=== PATIENT | male | born 1995 | race Hispanic/Latino ===

== ENCOUNTER 2024-10-18 17:28 | Emergency (ER) | payer SELFPAY ==
[~2024-10-18] VITALS: Ht 170.2 cm; Wt 90.7 kg
[2024-10-18] MEDS: CIPROFLOXACIN HCL 0.2%/HYDROCORT 1% 10 ML OTIC SUSP OTIC ONE (18:25)
[2024-10-18] MEDS: ketOROlac 15MG/ML VIAL (15MG/ML) IV ONE (18:25)
[2024-10-18] MEDS: cefTRIAXone 1G VIAL IVPB ONE (18:25)
[2024-10-18] MEDS: dexaMETHasone SOD PHOSPHATE 4 MG/ML 1ML VIAL IV ONE (18:25)
[2024-10-18] MEDS ORDERED: AMOX1TAB16 PO (18:30)
[2024-10-18] MEDS ORDERED: KETO10TA2 PO (18:30)
[2024-10-18] MEDS ORDERED: CIPOTIC OTIC (18:30)
--- NOTE | 2024-10-18 18:38 | ERN ---
General Chief Complaint: Earache Stated Complaint: RT EAR PAIN Time Seen by MD: 17:31 Time Seen by Midlevel: 17:31 Source: patient History of Present Illness Initial Comments Patient is a 29-year-old male with no significant past medical history presenting to the emergency department with right ear pain that started yesterday. He went to [place] yesterday and obtained antibiotic eardrops that he started yesterday with little to no relief. Today he reports increased pain to the right side of his ear. Denies any other symptoms. Allergies: Coded Allergies: No Known Allergies (Unverified Allergy, Unknown, 10/18/24) Home Meds Active Scripts Ciprofloxacin HCl/Hc (Cipro Hc Otic Susp) 0.2 %-1 % Otsus, 3 DROP OTIC BID for 7 Days, #10 ML 0 Refills Prov:CAPRI WELLER 10/18/24 Amoxicillin/Potassium Clav (Amox Tr-K Clv 875-125 mg Tab) 875 Mg-125 Mg Tablet, 1 EACH PO BID for 7 Days, #14 TAB 0 Refills Prov:CAPRI WELLER 10/18/24 Ketorolac Tromethamine (Ketorolac Tromethamine) 10 Mg Tablet, 1 TAB PO TID for p ain for 5 Days, #15 TAB 0 Refills Prov:CAPRI WELLER 10/18/24 Past Medical History Past Medical History: No Pertinent History Past Surgical History: None ROS Dictation CONSTITUTIONAL: Negative except for HPI HEAD/FACE: Negative except for HPI EENT: Negative except for HPI RESPIRATORY: Negative except for HPI GASTROINTESTINAL/ABDOMINAL: Negative except for HPI GENITOURINARY: Negative except for HPI MUSCULOSKELETAL: Negative except for HPI INTEGUMENTARY: Negative except for HPI NEUROLOGICAL/PSYCH: Negative except for HPI HEMATOLOGIC/LYMPHATIC: Negative except for HPI All Systems Negative, Except as noted above. 13 point review of systems assessed and all negative except for above. Physical Exam Physical Exam Dictation PHYSICAL EXAM: GENERAL: alert,, awake oriented x 3 HEENT: Swelling to the external canal of the right ear consistent with otitis externa, unable to visualize the right tympanic membrane NECK: Supple, no JVD, trachea midline LUNGS: Clear breath sounds bilaterally. No wheezes HEART: Regular rate and rhythm. Normal S1 and S2, without murmurs ABD: Abdomen soft, nontender. Bowel sounds present EXT: No clubbing or cyanosis, NEURO: Alert and oriented to person, follows commands MDM MDM: Patient is a 29-year-old male with no significant past medical history presenting to the emergency department with right ear pain that started yesterday. He went to [place] yesterday and obtained antibiotic eardrops that he started yesterday with little to no relief. Today he reports increased pain to the right side of his ear. Denies any other symptoms. On physical examination there is swelling to the external canal of the right ear consistent with otitis externa, unable to visualize the right tympanic membrane. Given that I am unable to visualize right tympanic membrane and we will go ahead and treat for an otitis media. On exam patient is moderately uncomfortable. He will be given 1 g of Rocephin IV along with Toradol and dexamethasone for supportive m anagement. He was also started on Cipro otic drops. He will be discharged home with Toradol and Augmentin for outpatient management. He was advised to follow up with his PCP in 2-3 days for repeat evaluation. Return precautions discussed Differential diagnosis: Otitis externa, otitis media, mastoiditis There are no social concerns with this patient. Prescription drug management Prescriptions will include: Augmentin and Toradol Medical management and examination interpretation discussions were had by me with other qualified healthcare professionals as indicated for the patient's care. ED Course Orders Procedure Category Date Status Time Ceftriaxone 1g Vial PHA 10/18/24 Complete (Rocephine 1g Inj) 18:30 Dexamethasone 4mg/Ml PHA 10/18/24 Complete 1ml Vial (Dexametha 18:30 Ketorolac PHA 10/18/24 Complete Tromethamine 15mg/Ml 18:30 Ciprofloxacin Hcl/Hc PHA 10/18/24 Complete (Cipro Hc Otic Susp 18:30 Current Medications Medications (Trade) Dose Ordered Sig/Richard Route PRN Reason Start Time Stop Time Status Last Admin Dose Admin Ceftriaxone Sodium (ROCEphine 1G INJ) 1 gm ONCE ONCE IVPB 10/18/24 18:30 10/18/24 18:31 DC 10/18/24 18:25 Ciprofloxacin/ Hydrocortisone (Cipro Hc Otic Susp) 1 DROP ONCE ONCE OTIC 10/18/24 18:30 10/18/24 18:31 DC 10/18/24 18:25 Dexamethasone Sodium Phosphate (dexaMETHasone 4MG/ML 1ML VIAL) 10 mg ONCE ONCE IV 10/18/24 18:30 10/18/24 18:31 DC 10/18/24 18:25 Ketorolac Tromethamine (toRADol) 15 mg ONCE ONCE IV 10/18/24 18:30 10/18/24 18:31 DC 10/18/24 18:25 Vital Signs Date Time Temp Pulse Resp B/P (MAP) Pulse Ox O2 Delivery O2 Flow Rate FiO2 10/18/24 17:39 99.0 97 18 129/79 97 Room Air* 0 21 10/18/24 17:30 99.1 102 20 138/72 98 Room Air DX & DISP Disposition: Discharge Departure Impression: Primary Impression: Right otitis externa Condition: Stable Scripts Ciprofloxacin HCl/Hc (Cipro Hc Otic Susp) 0.2 %-1 % Otsus 3 DROP OTIC BID for 7 Days, #10 ML 0 Refills Prov: CAPRI WELLER 10/18/24 Amoxicillin/Potassium Clav (Amox Tr-K Clv 875-125 mg Tab) 875 Mg-125 Mg Tablet 1 EACH PO BID for 7 Days, #14 TAB 0 Refills Prov: CAPRI WELLER 10/18/24 Ketorolac Tromethamine (Ketorolac Tromethamine) 10 Mg Tablet 1 TAB PO TID for pain for 5 Days, #15 TAB 0 Refills Prov: CAPRI WELLER 10/18/24 Additional Instructions: Your physical examination is consistent with otitis externa. This is an inflammation of your external ear canal. Your external ear canal is swollen shut secondary to infection. I am unable to visualize your middle ear. I have given you a prescription for Augmentin and ketorolac for outpatient management. Please follow up with your primary care doctor in 2-3 days for repeat evaluation. Return to the ER for any new or worsening symptoms Time of Disposition: 18:28 I have reviewed the case, and I agree with, Diagnosis and Plan I performed the substantive portion of the visit. I have reviewed and personally made and approve the management plan that is documented in the note by myself or the MANE. I acknowledge for responsibility for the patient's management plan. CAPRI WELLER Oct 18, 2024 18:38
[2024-10-18 18:56] VITALS: BP 129/73; PULSE 97; RESP 18; TEMP 99; O2SAT 98
== END 2024-10-18 19:13 | disposition home or self-care (01) ==
LOC: EDH 17:28
DX: H60.91 Unspecified otitis externa, right ear (principal)
CPT/HCPCS: 99284; 96365; 96375; J1100; J0696; J1885